=== PATIENT | female | born 1940 | race Caucasian/White ===

== ENCOUNTER → 2018-04-06 | Outpatient (CLI) | payer MEDICARE, OTHER | LOC: M CLY 14:30 | DX: R93.8 Abnormal findings on diagnostic imaging of other specified body structures (principal); M25.561 Pain in right knee; M77.31 Calcaneal spur, right foot; M25.571 Pain in right ankle and joints of right foot; M25.551 Pain in right hip | CPT/HCPCS: 73502; 84443 ==

== ENCOUNTER → 2018-04-06 | Outpatient (CLI) | payer MEDICARE, OTHER ==
[2018-04-07 12:24] LABS: FREE T4 1.09 NG/DL (0.76-1.46)
== END ==
LOC: M CLY 14:17
DX: I10 Essential (primary) hypertension (principal); R26.81 Unsteadiness on feet; R41.89 Other symptoms and signs involving cognitive functions and awareness; Z98.890 Other specified postprocedural states
CPT/HCPCS: 84443

== ENCOUNTER → 2018-04-13 | Outpatient (CLI) | payer MEDICARE, OTHER | LOC: M RAD 10:13 | DX: Z12.31 Encounter for screening mammogram for malignant neoplasm of breast (principal) | CPT/HCPCS: 77067 ==

== ENCOUNTER → 2018-05-10 | Outpatient (CLI) | payer MEDICARE, OTHER ==
[~2018-05-10] MED LIST: E-Z-GAS II EFFERVESCENT PACKET (SODIUM BICARB./CITRIC ACID/SIMETHICONE) As Ordered; E-Z-HD 98% w/w 340GM SUSP BTL As Ordered; E-Z-PAQUE 96% w/w SUSP 176GM BTL As Ordered
== END ==
LOC: M RAD 09:51
DX: R11.10 Vomiting, unspecified (principal); K22.5 Diverticulum of esophagus, acquired
CPT/HCPCS: 74220

== ENCOUNTER → 2018-05-17 | Outpatient (CLI) | payer MEDICARE, OTHER | LOC: M ST 10:28 | DX: R13.13 Dysphagia, pharyngeal phase (principal); R93.3 Abnormal findings on diagnostic imaging of other parts of digestive tract | CPT/HCPCS: 74230 ==

== ENCOUNTER → 2018-06-15 | Outpatient (REF) | payer MEDICARE, OTHER ==
[2018-06-16 11:37] LABS: HEMATOCRIT 40.4 % (36.0-47.0); HEMOGLOBIN 13.2 g/dl (12.0-15.5); MEAN CORPUSCULAR HGB CONC 32.7 g/dl (32.0-36.5); MEAN CORPUSCULAR VOLUME 91.8 fl (80.0-96.0); PLATELET COUNT, AUTOMATED 304 10^3/uL (150-450); RED CELL DISTRIBUTION WIDTH 12.7 % (11.5-14.5); WHITE BLOOD COUNT 6.4 10^3/uL (4.0-10.0)
== END ==
LOC: M SFHCCLAY 15:36
DX: R53.83 Other fatigue (principal)
CPT/HCPCS: 85027

== ENCOUNTER → 2018-11-23 | Outpatient (CLI) | payer MEDICARE, OTHER ==
[~2018-11-23] MED LIST changes: +ACET65TA; +ANTI25TA; +ASPI325T; +ASPI81TA85 PO; +BABY81CH; +BISA10SU PR; +BISAC5TA PO; +BUSP10TA PO; +DOCU5LIQ PO; -E-Z-GAS II EFFERVESCENT PACKET (SODIUM BICARB./CITRIC ACID/SIMETHICONE) As Ordered; -E-Z-HD 98% w/w 340GM SUSP BTL As Ordered; -E-Z-PAQUE 96% w/w SUSP 176GM BTL As Ordered; +LOPI600T; +LOPR50TA; +LOVE1INJ SQ; +MOM30SS PO; +PLAV75TA2; +PRIL20CA; +TYLE325T5 PO; +VITAMIN D; +VITMTA PO; +ZOCO40TA; +fish oil; +vitamin D
--- NOTE | 2018-11-23 15:56 | REP ---
CHEST, TWO VIEWS: COMPARISON: 09/04/2008. There is no evidence of acute infiltrate. No pleural effusion is seen. The heart is normal in size. The mediastinal silhouette is unremarkable. The visualized osseous structures are intact. There is calcification of the thoracic aorta. There are degenerative changes of the spine. IMPRESSION: No acute pulmonary disease.
== END ==
LOC: M CLY 15:13
PROVIDERS: ATTEND Family Medicine
DX: R05 Cough (principal); J11.1 Influenza due to unidentified influenza virus with other respiratory manifestations

== ENCOUNTER → 2019-04-24 | Outpatient (REF) | payer MEDICARE, OTHER ==
[2019-04-24 18:59] LABS: BLOOD UREA NITROGEN 15 MG/DL (7-18); CALCIUM LEVEL 8.9 MG/DL (8.8-10.2); CARBON DIOXIDE LEVEL 29 MEQ/L (21-32); CHLORIDE LEVEL 102 MEQ/L (98-107); CREATININE FOR GFR 0.85 MG/DL (0.55-1.30); FOLATE 6.5 NG/ML; GLOMERULAR FILTRATION RATE > 60.0 (>39); GLUCOSE, FASTING 72 MG/DL (70-100); POTASSIUM SERUM 4.6 MEQ/L (3.5-5.1); SODIUM LEVEL 138 MEQ/L (136-145); TOTAL PROTEIN 7.2 GM/DL (6.4-8.2); VITAMIN B12 LEVEL 183 PG/ML
[2019-04-25 13:47] LABS: ALBUMIN 4.18 GM/DL (3.29-5.55); ALBUMIN % 58.1 % (55.8-66.1); ALPHA-1-GLOBULIN % 4.1 % (2.9-4.9); ALPHA-2-GLOBULINS 0.79 GM/DL (0.42-0.99); BETA-1-GLOBULINS 0.43 GM/DL (0.28-0.60); BETA-2-GLOBULINS 0.49 GM/DL (0.19-0.55); BETA-2-GLOBULINS % 6.8 % (3.2-6.5); GAMMA GLOBULINS 1.01 GM/DL (0.65-1.58)
== END ==
LOC: M LABDRAWC 16:48
PROVIDERS: ATTEND Psychiatry & Neurology Neurology
DX: R41.89 Other symptoms and signs involving cognitive functions and awareness (principal); R53.83 Other fatigue
CPT/HCPCS: 36415; 80048; 82607; 82746; 84165; 84425; 84443; G0463

== ENCOUNTER → 2019-05-06 | Outpatient (CLI) | payer MEDICARE, OTHER, MEDICAID ==
--- NOTE | 2019-05-08 12:00 | REP ---
MRI BRAIN WITHOUT CONTRAST: HISTORY: Dizziness. Cognitive deficits. Comparison MRI study of the brain is from July 23, 2009. Comparison CT study May 15, 2012. TECHNIQUE: Axial and sagittal imaging planes are utilized for T1- and T2-weighted scans. Sequences include spin-echo, fast spin echo, FLAIR, and diffusion weighted sequences. MRI FINDINGS: Bony calvarium is intact. Craniocervical junction and upper cervical cord are unremarkable. There is no MR evidence of significant paranasal sinus disease. No intraorbital abnormality is seen. Diffusion weighted scans show no evidence of restricted diffusion. There is no evidence of infarct, hemorrhage, or mass. Turbo spin-echo T2 and FLAIR images demonstrate scattered areas of periventricular and subcortical white matter T2 hyperintensity consistent with microvascular changes. These are more pronounced than on the 2009 prior study but otherwise similar. Exam is otherwise unremarkable. IMPRESSION: Microvascular atherosclerotic changes. These are somewhat more pronounced than on the comparison prior MRI study from 2008. Otherwise negative. No acute intracranial abnormality. Electronically Signed by Jer Kovacs MD 05/08/2019 03:04 P
== END ==
LOC: M RAD 08:45
PROVIDERS: ATTEND Psychiatry & Neurology Neurology
DX: R42 Dizziness and giddiness (principal); F09 Unspecified mental disorder due to known physiological condition

== ENCOUNTER → 2019-08-01 | Outpatient (REF) | payer MEDICARE, OTHER ==
[2019-08-01 11:48] LABS: HEMATOCRIT 40.8 % (36.0-47.0); HEMOGLOBIN 12.9 g/dl (12.0-15.5); MEAN CORPUSCULAR HEMOGLOBIN 30.4 pg (27.0-33.0); MEAN CORPUSCULAR HGB CONC 31.6 g/dl (32.0-36.5); MEAN CORPUSCULAR VOLUME 96.2 fl (80.0-96.0); PLATELET COUNT, AUTOMATED 276 10^3/uL (150-450); RED BLOOD COUNT 4.24 10^6/uL (4.00-5.40); WHITE BLOOD COUNT 4.4 10^3/uL (4.0-10.0)
[2019-08-01 12:18] LABS: BLOOD UREA NITROGEN 16 MG/DL (7-18); CALCIUM LEVEL 8.8 MG/DL (8.8-10.2); CARBON DIOXIDE LEVEL 28 MEQ/L (21-32); CHLORIDE LEVEL 105 MEQ/L (98-107); CREATININE FOR GFR 0.83 MG/DL (0.55-1.30); GLOMERULAR FILTRATION RATE > 60.0 (>39); GLUCOSE, FASTING 85 MG/DL (70-100); POTASSIUM SERUM 4.4 MEQ/L (3.5-5.1); SODIUM LEVEL 140 MEQ/L (136-145)
[2019-08-01 12:25] LABS: FOLATE 10.3 NG/ML; VITAMIN B12 LEVEL 1219 PG/ML
== END ==
LOC: M SFHCCLAY 09:34
PROVIDERS: ATTEND Family Medicine
DX: R29.6 Repeated falls (principal); R53.83 Other fatigue
CPT/HCPCS: 80048; 82607; 82746; 85027; G0463

== ENCOUNTER → 2019-08-15 | Outpatient (REF) | payer MEDICARE, OTHER ==
[2019-08-18 00:08] LABS: ANA (HEP2) Negative (.)
== END ==
LOC: M SFHCCLAY 13:52
PROVIDERS: ATTEND Family Medicine
DX: F03.90 Unspecified dementia, unspecified severity, without behavioral disturbance, psychotic disturbance, mood disturbance, and anxiety (principal)

== ENCOUNTER → 2019-10-14 | Outpatient (CLI) | payer MEDICARE, OTHER, MEDICAID ==
--- NOTE | 2019-10-15 11:20 | REP ---
REASON: Trauma to the left side. Frontal view of the chest has been compared to the two-view chest exam of 11/23/2018. The frontal view of the chest is unchanged from the prior examination and is clear. Multiple views of the left ribs show no evidence of an acute fracture or destructive osseous lesion. Electronically Signed by Jordan Ramos DO 10/15/2019 12:20 P
== END ==
LOC: M LRY 15:38
PROVIDERS: ATTEND Physician Assistant
DX: S29.9XXA Unspecified injury of thorax, initial encounter (principal); W06.XXXA Fall from bed, initial encounter; Y92.009 Unspecified place in unspecified non-institutional (private) residence as the place of occurrence of the external cause
CPT/HCPCS: 71101; G0463

== ENCOUNTER → 2019-12-14 | Outpatient (CLI) | payer MEDICARE, OTHER ==
[~2019-12-14] MED LIST changes: +ALEN70TA74; +ASPI81CH33 PO; +B-12100010 PO; +D 101000 PO; +OMEP10CASR PO; +SERT-138; +ZOCO40TA PO
--- NOTE | 2019-12-21 15:05 | DEXA ---
AP SPINE L1 - L4 1.071 -1.0 0.8 LT FEMUR TOTAL 0.729 -2.2 -0.2 LT NECK 0.665 -2.7 -0.6 RT FEMUR TOTAL RT NECK TOTAL BODY TOTAL OTHER COMMENTS: There is low bone density of the spine. There is osteoporosis of the left hip. The density of the spine is increased 7.2% since 03/12/2014. The density of the left hip has increased 9.0% since 03/12/2014. The density of the right hip is capital N/A. The increased density of the spine does represent significant change. The increased density of the left hip does represent significant change. FOLLOW-UP: Recommendation for the next bone density exam: 2 years. MARY
== END ==
LOC: M WHC 12:57
PROVIDERS: ATTEND Family Medicine
DX: M81.0 Age-related osteoporosis without current pathological fracture (principal)

== ENCOUNTER → 2019-12-18 | Outpatient (CLI) | payer MEDICARE, OTHER, MEDICAID ==
[~2019-12-18] MED LIST changes: -ALEN70TA74; -ASPI81CH33 PO; -B-12100010 PO; -D 101000 PO; -OMEP10CASR PO; -SERT-138; -ZOCO40TA PO
--- NOTE | 2019-12-18 13:12 | REP ---
RIGHT HIP, TWO VIEWS: Two views of the right hip are performed. There is no acute fracture or dislocation. There are metallic screws in the proximal femur, unchanged since prior study of 04/06/2018. IMPRESSION: No acute fracture or dislocation. Electronically Signed by Murali Woodard MD 12/18/2019 01:16 P
--- NOTE | 2019-12-18 13:13 | REP ---
RIGHT KNEE, FIVE VIEWS: Five views of right knee performed. There is no acute fracture or dislocation. There is mild diffuse joint space narrowing. There is mild chondrocalcinosis. There is a small joint effusion. IMPRESSION: Mild degenerative changes. Small joint effusion. No acute fracture or dislocation. Electronically Signed by Murali Woodard MD 12/18/2019 01:16 P
--- NOTE | 2019-12-18 13:14 | REP ---
RIGHT ANKLE, FOUR VIEWS: There is no evidence of an acute fracture, dislocation or intrinsic bone disease. There is a tiny inferior calcaneal spur. IMPRESSION: No fracture or dislocation. Electronically Signed by Murali Woodard MD 12/18/2019 01:16 P
== END ==
LOC: M CLY 09:52
PROVIDERS: ATTEND Family Medicine
DX: M17.11 Unilateral primary osteoarthritis, right knee (principal); M25.461 Effusion, right knee; M25.551 Pain in right hip; M25.571 Pain in right ankle and joints of right foot; M25.561 Pain in right knee
CPT/HCPCS: 73502; 73564; 73610; G0463

== ENCOUNTER 2019-12-22 17:51 | Emergency (ER) | payer MEDICARE, OTHER, MEDICAID ==
[~2019-12-22] VITALS: Ht 160 cm; Wt 65.9 kg
[2019-12-22] MEDS ORDERED: LIDOCAINE 2% W/EPIN INJ 20ML **PRES FREE INJ ONE (18:15)
[2019-12-22] MEDS ORDERED: ASPI81CH33 PO (18:20)
[2019-12-22] MEDS ORDERED: SERT-138 (18:22)
[2019-12-22] MEDS ORDERED: OMEP10CASR PO (18:22)
[2019-12-22] MEDS ORDERED: ALEN70TA74 (18:23)
[2019-12-22] MEDS ORDERED: B-12100010 PO (18:23)
[2019-12-22] MEDS ORDERED: ZOCO40TA PO (18:24)
[2019-12-22] MEDS ORDERED: D 101000 PO (18:25)
[2019-12-22] MEDS ORDERED: BOOSTRIX/ADACEL VACCINE (DIPHTH/PERTUSS/ACELL/TETANUS) 0.5ML SYR IM ONE (19:00)
--- NOTE | 2019-12-22 19:04 | REPVR ---
PROCEDURE INFORMATION: Exam: CT Head Without Contrast Exam date and time: 12/22/2019 6:33 PM Age: 79 years old Clinical indication: Injury or trauma; Fall; Initial encounter; Blunt trauma (contusions or hematomas); Additional info: Chi TECHNIQUE: Imaging protocol: Computed tomography of the head without contrast. Radiation optimization: All CT scans at this facility use at least one of these dose optimization techniques: automated exposure control; mA and/or kV adjustment per patient size (includes targeted exams where dose is matched to clinical indication); or iterative reconstruction. COMPARISON: MRI-Brain without Contrast 05/06/2019 9:16 AM FINDINGS: Brain: There are moderate periventricular and subcortical lucencies consistent with chronic microvascular ischemic changes. The crowder-white differentiation is maintained. No hemorrhage. No edema. Ventricles: Normal. No ventriculomegaly. Bones/joints: Unremarkable. No acute fracture. Sinuses: Visualized sinuses are unremarkable. No fluid levels. Mastoid air cells: Visualized mastoid air cells are well aerated. Soft tissues: Unremarkable. IMPRESSION: No acute intracranial abnormality. Chronic microvascular ischemic changes. Electronically signed by: Geovany Hassan On 12/22/2019 19:04:49 PM
--- NOTE | 2019-12-22 19:08 | REPVR ---
PROCEDURE INFORMATION: Exam: CT Cervical Spine Without Contrast Exam date and time: 12/22/2019 6:33 PM Age: 79 years old Clinical indication: Injury or trauma; Fall; Initial encounter; Blunt trauma; Additional info: Chi TECHNIQUE: Imaging protocol: Computed tomography images of the cervical spine without contrast. Radiation optimization: All CT scans at this facility use at least one of these dose optimization techniques: automated exposure control; mA and/or kV adjustment per patient size (includes targeted exams where dose is matched to clinical indication); or iterative reconstruction. COMPARISON: XA Cookie Swallow Mod.Ba Swallow 05/17/2018 12:04 PM FINDINGS: Vertebrae: Grade 1 anterolisthesis of C7 over T1. Grade 1 retrolisthesis of C3 over C4. No spinal canal stenosis. Soft tissues: Unremarkable. Lungs: Lung apices are normal. Other findings: Multilevel degenerative disc disease. There is multilevel uncovertebral and facet hypertrophy with neural foramina narrowing. IMPRESSION: No acute fracture. Grade 1 anterolisthesis of C7 over T1 and grade 1 retrolisthesis of C3 over C4, likely degenerative. Electronically signed by: Geovany Hassan On 12/22/2019 19:08:21 PM
[2019-12-22 19:25] VITALS: BP 131/69
[2019-12-22] MEDS ORDERED: ACETAMINOPHEN TAB 650MG DOSE (2X325MG) PO ONE (19:30)
--- NOTE | 2019-12-26 19:52 | ED PDOC ---
Post-Departure Follow-Up ct c spine faxed to dr terrell for fu Mike East MD December 26, 2019 19:52
--- NOTE | 2020-01-10 07:03 | REP ---
Clinical: Trauma. Fall. Technique: AP, lateral, bilateral oblique views of the right knee. Comparison: 12/18/2019 Findings: Age-related osteopenia and generalized degenerative changes are noted. No definite acute fracture or dislocation. Prepatellar soft tissue swelling. Cannot exclude small effusion. Impression: Osteopenia and arthritic degenerative changes. Prepatellar swelling and possible small effusion. No definite acute fracture or dislocation. Electronically Signed by Mario Cohen MD 01/10/2020 06:54 A
--- NOTE | 2020-01-10 07:03 | REP ---
Clinical: Trauma. Fall. Technique: Single AP view of the pelvis. Findings: Age-related changes are appreciated. Evidence for prior right femoral neck fracture fixation. No acute fracture or dislocation identified. Impression: No acute fracture or dislocation appreciated. Electronically Signed by Mario Cohen MD 01/10/2020 06:54 A
== END 2019-12-22 19:38 | disposition home or self-care (01) ==
LOC: EDBD 17:51 → M ED 17:51
DX: S01.81XA Laceration without foreign body of other part of head, initial encounter (principal); S80.01XA Contusion of right knee, initial encounter; W01.0XXA Fall on same level from slipping, tripping and stumbling without subsequent striking against object, initial encounter; Y92.89 Other specified places as the place of occurrence of the external cause; I10 Essential (primary) hypertension; E78.9 Disorder of lipoprotein metabolism, unspecified; F03.90 Unspecified dementia, unspecified severity, without behavioral disturbance, psychotic disturbance, mood disturbance, and anxiety; Z79.899 Other long term (current) drug therapy; Z79.82 Long term (current) use of aspirin

== ENCOUNTER 2019-12-25 15:50 | Emergency (ER) | payer MEDICARE, OTHER, MEDICAID ==
[~2019-12-25] VITALS: Ht 149.9 cm; Wt 65.1 kg
[~2019-12-25 15:50] MED LIST changes: +ALEN70TA74; +ASPI81CH33 PO; +B-12100010 PO; +D 101000 PO; +OMEP10CASR PO; +SERT-138; +ZOCO40TA PO
[2019-12-25 15:52] VITALS: BP 120/56
== END 2019-12-25 16:36 | disposition home or self-care (01) ==
LOC: M ED 15:50
DX: Z04.89 Encounter for examination and observation for other specified reasons (principal)

== ENCOUNTER → 2020-02-13 | Outpatient (REF) | payer MEDICARE, OTHER, MEDICAID ==
[2020-02-18 12:10] LABS: VITAMIN B1 LEVEL WHOLE BLOOD 113.5 nmol/L (66.5-200.0)
== END ==
LOC: M LABDRAWC 15:46
PROVIDERS: ATTEND Psychiatry & Neurology Neurology
DX: R41.89 Other symptoms and signs involving cognitive functions and awareness (principal)

== ENCOUNTER → 2020-03-04 | Outpatient (CLI) | payer MEDICARE, OTHER, MEDICAID | LOC: M RAD 08:48 | PROVIDERS: ATTEND Family Medicine | DX: R29.898 Other symptoms and signs involving the musculoskeletal system (principal) ==

== ENCOUNTER 2020-06-30 17:07 | Emergency (ER) | payer MEDICARE, OTHER, MEDICAID ==
[~2020-06-30] VITALS: Ht 152.4 cm; Wt 63.6 kg
[~2020-06-30 17:07] MED LIST changes: -SERT-138; +SERT-138 PO
[2020-06-30] MEDS ORDERED: DONE5TAB82 PO (17:43)
[2020-06-30 18:03] LABS: BASO % 0.3 % (0.0-1.0); EOS % 0.3 % (0.0-3.0); HEMATOCRIT 36.2 % (36.0-47.0); HEMOGLOBIN 11.6 g/dl (12.0-15.5); LYMPH # 1.4 10^3/uL (1.5-5.0); LYMPH % 23.6 % (24.0-44.0); MEAN CORPUSCULAR HEMOGLOBIN 30.4 pg (27.0-33.0); MONO # 0.5 10^3/uL (0.0-0.8); MONO % 8.5 % (0.0-5.0); NEUTROPHILS % 66.8 % (36.0-66.0); PLATELET COUNT, AUTOMATED 246 10^3/uL (150-450); RED BLOOD COUNT 3.81 10^6/uL (4.00-5.40)
[2020-06-30 18:32] LABS: ALBUMIN 3.3 GM/DL (3.2-5.2); ALT/SGPT 35 U/L (12-78); BILIRUBIN,DIRECT 0.2 MG/DL (0.0-0.2); BILIRUBIN,TOTAL 0.6 MG/DL (0.2-1.0); CK-MB VALUE MASS 4.6 NG/ML (<3.6); CPK CREATINE PHOSPHOKINASE 105 U/L (26-192); MB/CK RELATIVE INDEX 4.38 (< OR =4); TOTAL PROTEIN 6.8 GM/DL (6.4-8.2); TROPONIN I < 0.02 NG/ML (< 0.10)
[2020-06-30] MEDS ORDERED: ASPI81TA26 PO (19:07)
[2020-06-30] MEDS ORDERED: ACET-683 PO (19:07)
[2020-06-30] MEDS ORDERED: OMEP-218 PO (19:07)
--- NOTE | 2020-06-30 19:38 | REPVR ---
PROCEDURE INFORMATION: Exam: CT Head Without Contrast Exam date and time: 06/30/2020 7:24 PM Age: 79 years old Clinical indication: Pain; Headache; Additional info: Weakness TECHNIQUE: Imaging protocol: Computed tomography of the head without contrast. Radiation optimization: All CT scans at this facility use at least one of these dose optimization techniques: automated exposure control; mA and/or kV adjustment per patient size (includes targeted exams where dose is matched to clinical indication); or iterative reconstruction. COMPARISON: CT Head without contrast 12/22/2019 6:28 PM FINDINGS: Brain: Decreased attenuation of the supratentorial white matter is likely secondary to chronic microvascular ischemia. No acute intracranial hemorrhage. Small chronic left cerebellar infarct. Cerebral ventricles: Ventricular and subarachnoid spaces are age appropriate. Bones/joints: Unremarkable. No acute fracture. Paranasal sinuses: Visualized sinuses are unremarkable. No fluid levels. Mastoid air cells: Visualized mastoid air cells are well aerated. Vasculature: Intracranial vascular calcification. Soft tissues: Unremarkable. IMPRESSION: No acute intracranial abnormality. Electronically signed by: Jose Du On 06/30/2020 19:38:06 PM
--- NOTE | 2020-06-30 19:39 | REP ---
INDICATION: ALTERED COMPARISON: 11/23/2018 TECHNIQUE: Portable AP view of the chest FINDINGS: The mediastinum and cardiac silhouette are stable and within normal limits for portable technique. The lung elaine are clear without acute consolidation, effusion, or pneumothorax. Skeletal structures demonstrate stable chronic scoliosis. IMPRESSION: No acute cardiopulmonary process appreciated. <Electronically signed by Mario Cohen > 06/30/20 [id number]
[2020-06-30] MEDS ORDERED: LIDOCAINE 2% 5ML JELLY UROJET TOP ONE (20:30)
--- NOTE | 2020-06-30 20:46 | ECGEPIP ---
[facility] - ED Test Date: 2020-06-30 Pat Name: MACHO SADLER Department: Room: - Gender: Female Registered Appraiser: PEYMAN : 1940 Requested By: RADHA Danielson Order Number: [id number] Reading MD: Ofe Ledezma Measurements Intervals Cooper Rate: 67 P: 23 SD: 188 QRS: -4 QRSD: 78 T: 32 QT: 413 QTc: 437 Interpretive Statements SINUS RHYTHM NSTTW abnormalities NO PRIOR Electronically Signed on 06-30-2020 20:45:38 EST by Ofe Ledezma
[2020-06-30] MEDS ORDERED: MACR100C43 PO (21:22)
[2020-06-30 21:45] VITALS: BP 152/67
[2020-06-30] MEDS ORDERED: NITROFURANTOIN (MACROBID) 100 MG CAP PO ONE (21:45)
== END 2020-06-30 21:50 | disposition home or self-care (01) ==
LOC: M ED 17:07
DX: N39.0 Urinary tract infection, site not specified (principal); R53.83 Other fatigue; R06.02 Shortness of breath; I11.9 Hypertensive heart disease without heart failure; F03.90 Unspecified dementia, unspecified severity, without behavioral disturbance, psychotic disturbance, mood disturbance, and anxiety; Z79.899 Other long term (current) drug therapy

== ENCOUNTER → 2020-10-16 | Outpatient (REF) | payer MEDICARE, OTHER, MEDICAID ==
[~2020-10-16] MED LIST changes: +ACET-683 PO; -ALEN70TA74; +ALEN70TA82; +ASPI81TA26 PO; +DONE5TAB82 PO; +MACR100C43 PO; +OMEP-218 PO
[2020-10-16 17:05] LABS: ALBUMIN 4.1 GM/DL (3.2-5.2); ALT/SGPT 21 U/L (12-78); BILIRUBIN,TOTAL 0.7 MG/DL (0.2-1.0); BLOOD UREA NITROGEN 20 MG/DL (7-18); CALCIUM LEVEL 9.4 MG/DL (8.8-10.2); CARBON DIOXIDE LEVEL 32 MEQ/L (21-32); CHLORIDE LEVEL 104 MEQ/L (98-107); GLOMERULAR FILTRATION RATE > 60.0 (>32); GLUCOSE, FASTING 80 MG/DL (70-100); POTASSIUM SERUM 4.8 MEQ/L (3.5-5.1); SODIUM LEVEL 139 MEQ/L (136-145); TOTAL PROTEIN 7.7 GM/DL (6.4-8.2)
== END ==
LOC: M SFHCCLAY 11:21
PROVIDERS: ATTEND Family Medicine
DX: G30.9 Alzheimer's disease, unspecified (principal)

== ENCOUNTER → 2021-03-07 | Outpatient (REF) | payer MEDICARE, OTHER, MEDICAID ==
[2021-03-07 15:58] LABS: HEMATOCRIT 38.2 % (36.0-47.0); HEMOGLOBIN 12.5 g/dl (12.0-15.5); MEAN CORPUSCULAR HGB CONC 32.7 g/dl (32.0-36.5); MEAN CORPUSCULAR VOLUME 97.7 fl (80.0-96.0); PLATELET COUNT, AUTOMATED 269 10^3/uL (150-450); RED BLOOD COUNT 3.91 10^6/uL (4.00-5.40); WHITE BLOOD COUNT 4.6 10^3/uL (4.0-10.0)
[2021-03-07 16:17] LABS: ALBUMIN 3.8 GM/DL (3.2-5.2); ALT/SGPT 23 U/L (12-78); BILIRUBIN,TOTAL 0.8 MG/DL (0.2-1.0); BLOOD UREA NITROGEN 17 MG/DL (7-18); CALCIUM LEVEL 9.3 MG/DL (8.8-10.2); CARBON DIOXIDE LEVEL 29 MEQ/L (21-32); CHLORIDE LEVEL 107 MEQ/L (98-107); CREATININE FOR GFR 0.91 MG/DL (0.55-1.30); GLOMERULAR FILTRATION RATE > 60.0 (>32); GLUCOSE, FASTING 88 MG/DL (70-100); POTASSIUM SERUM 4.5 MEQ/L (3.5-5.1); SODIUM LEVEL 142 MEQ/L (136-145); TOTAL PROTEIN 7.3 GM/DL (6.4-8.2)
== END ==
LOC: M SFHCCLAY 09:29
PROVIDERS: ATTEND Family Medicine
DX: G30.1 Alzheimer's disease with late onset (principal); R32 Unspecified urinary incontinence